=== PATIENT | female | born 1945 | race Caucasian/White ===

== ENCOUNTER 2021-03-27 20:08 | Inpatient (IN) ==
[2021-03-27] MEDS ORDERED: MECLIZINE 25 MG PO ONE (21:51)
--- NOTE | 2021-03-27 21:51 | Emergency Department Note ---
HPI General Chief complaint: Fall Stated complaint: Dizziness, fall Time Seen by Provider: 03/27/21 20:27 Source: patient, family and EMS Mode of arrival: wheelchair Limitations: no limitations History of Present Illness HPI Narrative: Narrative: Patient is a 76-year-old female who presented with chief complaint of dizziness and fall. Patient was brought in by her daughter after she had an episode where she became dizzy when she went from a sitting to a standing position. She states she felt the room was spinning, and she went to the ground, landing primarily on her right shoulder and hip. She denies hitting her head or loss of consciousness. Her primary complaint at this time is the right shoulder pain, and otherwise denies any other significant symptoms such as headache, neck pain or stiffness, numbness or tingling, chest pain, shortness of breath, nausea, vomiting, abdominal pain, changes in bowel movements or urinary symptoms. Patient states that she does get dizziness typically every so often when she changes positions too quickly, and it resolves with holding still. This has been normal for her and her daughter states she has had this for an extended amount of time. She has had a few falls in the past as well for similar symptoms. Related Data Previous Rx's Medication Instructions Recorded lisinopril 20 mg tablet 20 mg PO QDAY #90 tab 06/30/20 verapamil 180 mg tablet,extended See Rx Instructions .ROUTE 03/24/21 release .COMPLEX #90 tab meclizine 25 mg tablet 25 mg PO QDAY PRN #7 tab 03/27/21 Allergies Allergy/AdvReac Type Severity Reaction Status Date / Time No Known Drug Allergies Allergy Verified 03/27/21 20:14 Review of Systems ROS ROS Narrative: Narrative: All systems ED: reviewed and negative except as stated. 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 (Acute) Lumbar back pain with radiculopathy affecting right lower extremity (Acute) Leg pain, right (Acute) Annual physical exam (Acute) Lymphadenopathy (Acute) Dizziness (Acute) History of left knee replacement (Chronic) History of total hysterectomy (Chronic) History of appendectomy (Chronic) History of colonoscopy (Chronic 04/20/18) Idiopathic progressive polyneuropathy (Chronic) Postmenopausal (Chronic) Hypothyroidism (Chronic) Osteoporosis (Chronic) Disequilibrium (Chronic) Vitamin D deficiency (Chronic) Toothache (Chronic) Nausea (Chronic) Hypertension (Chronic) Raynaud's syndrome (Chronic) Foot pain (Chronic) Plantar fasciitis (Chronic) Back pain (Chronic) Contact dermatitis (Chronic) Other specified injuries of head, initial encounter (Chronic) Hemorrhoids (Chronic) Chest pain (Chronic) Medical History Back pain Contact dermatitis Disequilibrium Foot pain Hemorrhoids Hypertension Hypothyroidism Idiopathic progressive polyneuropathy Leg pain, right Lumbar back pain with radiculopathy affecting right lower extremity Nausea Osteoporosis Other specified injuries of head, initial encounter Plantar fasciitis Postmenopausal Raynaud's syndrome Toothache Vitamin D deficiency Surgical History History of appendectomy History of colonoscopy (04/20/18) Dr Ku repeat 10 years History of left knee replacement History of total hysterectomy Family History Mother HTN (hypertension) CVA (cerebral vascular accident) Thyroid disorder Father Cancer Sister HTN (hypertension) Social History Smoking Status: Never smoker Substance Use: does not use Exam Narrative Narrative: Narrative: Patient is laying in bed, talking normally and appropriately. She does not appear to be in acute discomfort or distress. General Limitations: no limitations Head Head: Present atraumatic and normocephalic Eye Eye: Present normal appearance, PERRL and EOMI; Absent scleral icterus or conjunctival injection ENT ENT: Present normal oropharynx and mucous membranes moist Neck Neck: Present full ROM and trachea midline; Absent tenderness or lymphadenopathy Chest Chest: Present symmetric chest wall rise Respiratory Respiratory: Present normal lung sounds bilaterally; Absent respiratory distress, rales/crackles, wheezes, stridor or accessory muscle use Cardiovascular Cardiovascular: Present regular rate and normal rhythm; Absent systolic murmur or diastolic murmur Adbominal Abdominal: Present soft; Absent tenderness, guarding, rebound, rigidity or mass Extremities Extremities: Absent pedal edema, pretibial edema or calf tenderness Expanded Upper Extremity Shoulder: Present full ROM and tenderness; Absent swelling, abrasion, ecchymosis, deformity, crepitus, dislocation or tenderness over AC joint Arm: Present normal inspection Elbow: Present normal inspection Expanded Lower Extremity Hip/Pelvis: Present normal inspection; Absent full ROM, tenderness, swelling, ecchymosis, deformity, crepitus, erythema, external rotation, internal rotation or shortening Back Back: Absent CVA tenderness (R), CVA tenderness (L) or spinous process tenderness Neurological Neurological: Present alert, oriented X3 and CN II-XII intact; Absent motor sensory deficit Psychiatric Psychiatric: Present normal affect and normal mood Skin Skin: Present warm (WNL) and dry Course Vital Signs Vital signs: Vital Signs Temperature 97.5 F 03/27/21 20:10 Pulse Rate 72 03/27/21 20:10 Respiratory Rate 16 03/27/21 20:10 Blood Pressure 163/72 03/27/21 20:10 Pulse Oximetry (%) 100 03/27/21 20:10 Temperature 97.5 F 03/27/21 20:10 Pulse Rate 72 03/27/21 21:38 Respiratory Rate 16 03/27/21 20:10 Blood Pressure 129/71 03/27/21 21:38 Pulse Oximetry (%) 98 03/27/21 21:38 MDM MDM Narrative Medical decision making narrative: Narrative: Patient is a 76-year-old female presented with chief complaint of right shoulder pain after a fall. Patient had no significant traumatic injuries noted on physical exam, and had normal vital signs here. EKG was unremarkable. Her dizziness episodes appear to be related to positional changes too quickly, either being vertiginous in nature or vasovagal. I have very low suspicion for ACS, PE, or other significant cardiopulmonary cause of her dizziness symptoms at this time. X-rays are negative for any significant acute findings on her shoulder or hip. Patient was given meclizine for her dizziness and plan to be discharged home with continued conservative management and close PCP follow-up. Patient is agreeable to the plan at this time has no further concerns or questions Procedures Other Procedure: EKG shows normal sinus rhythm with rate approximately 70. No ST elevation or depression concerning for ischemia. Right bundle branch block noted. No other significant arrhythmias as noted. Discharge Plan Patient/Caregiver Discharge Instructions Pt seen by WORKGROUP LEADER/PA only: No Clinical Impression: Fall, Right shoulder pain, Acute hip pain, Dizziness Instructions: Dizziness (ED), Shoulder Pain (ED), Hip Pain (ED) Patient Disposition: Home, Self-Care Follow up with: Gail Welch ARNP [Primary Care Provider] - Prescriptions: New meclizine 25 mg tablet 25 mg PO QDAY PRN (Reason: dizziness) Qty: 7 0RF No Action lisinopril 20 mg tablet 20 mg PO QDAY Qty: 90 2RF verapamil 180 mg tablet extended release See Rx Instructions .ROUTE .COMPLEX Qty: 90 3RF Dose Instruction: TAKE 1 TABLET BY MOUTH EVERY NIGHT AT BEDTIME Rx Instructions: TAKE 1 TABLET BY MOUTH EVERY NIGHT AT BEDTIME
[2021-03-27 23:21] LABS: POC Blood Urea Nitrogen 27 mg/dL (6-20); POC CO2 24 mmol/L (22-30); POC Calcium, Ionized 1.12 mmEq/L (1.16-1.32); POC Chloride 105 mEq/L (96-108); POC Glucose, Random 109 mg/dL (70-105); POC Hematocrit 36 % (36-48); POC Sodium 140 mEq/L (133-145)
[2021-03-28] MEDS ORDERED: ASPIRIN 81 MG TAB.CHEW CHEWED ONE (00:38)
[2021-03-28] MEDS ORDERED: PROCHLORPERAZINE 10 MG/2 ML VIAL IV PRN (01:44)
[2021-03-28] MEDS ORDERED: ONDANSETRON 4 MG/2 ML VIAL IV PRN (01:44)
[2021-03-28] MEDS: 0.9 % SODIUM CHLORIDE 1,000 ML IV SCH ×2 (01:46→17:12)
--- NOTE | 2021-03-28 02:50 | XRay Report ---
CLINICAL INFORMATION: Trauma COMPARISON: None. FINDINGS: Moderate degeneration seen in the acromioclavicular and glenohumeral joints. There is no fracture or other osseous abnormality. Soft tissues are unremarkable. IMPRESSION: No fracture. Degenerative change. Interpreted and Authenticated by: Glenn Wayne 03/28/21
--- NOTE | 2021-03-28 02:52 | XRay Report ---
CLINICAL INFORMATION: Trauma COMPARISON: 08/04/2020 FINDINGS: Sacroiliac and hip joints are normal in width and alignment. Mild chondrocalcinosis femoral head cartilage appreciated. On the lateral view, there is a spur projecting from the anterior right femoral neck There is no fracture or significant osseous abnormality. Soft tissues are unremarkable. IMPRESSION: No fracture. Degenerative change Interpreted and Authenticated by: Glenn Wayne 03/28/21
--- NOTE | 2021-03-28 03:08 | Cat Scan Report ---
CLINICAL INFORMATION: Dizziness COMPARISON: None. TECHNIQUE: 2.5 mm helical slices were obtained in the skull base to vertex. Following reconstruction, axial reformatted images were reviewed at bone and parenchymal windows. The exam was performed using radiation dose optimization techniques including, but not limited to, automated exposure control, adjustment of the mA and/or kV according to patient size and use of iterative reconstruction technique. FINDINGS: The ventricles, sulci, fissures, and cisterns are symmetrically enlarged compatible with mild age-related atrophy. No extra-axial fluid collections are identified. Mild patchy chronic ischemic changes, in the deep cerebral white matter, are expected for age. A 2 cm remote infarct in the right frontal lobe appreciated. 1 cm remote infarct in the left frontal lobe near vertex There is no hemorrhage, mass effect, or edema. Bone windows show no osseous abnormality. IMPRESSION: Mild atrophy and chronic ischemic changes in the deep cerebral white matter-expected for age. 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 No cerebral hemorrhage or other acute finding Interpreted and Authenticated by: Glenn Wayne 03/28/21
[2021-03-28] MEDS: 0.9 % SODIUM CHLORIDE 10 ML SYRINGE IV SCH ×3 (05:06→20:22)
[2021-03-28] MEDS ORDERED: LORazepam 2 MG/ML VIAL IV ONE (07:56)
[2021-03-28] MEDS: FAMOTIDINE 20 MG TABLET PO SCH ×2 (08:16→20:31)
[2021-03-28] MEDS: ENOXAPARIN 40 MG/0.4 ML SYRINGE SQ SCH (08:16)
[2021-03-28] MEDS: DOCUSATE SODIUM 100 MG CAPSULE PO SCH ×2 (08:17→20:31)
[2021-03-28] MEDS: ASPIRIN 81 MG TAB.CHEW PO SCH (08:17)
[2021-03-28] MEDS: ACETAMINOPHEN 325 MG TABLET PO PRN ×2 (08:18→20:37)
--- NOTE | 2021-03-28 11:12 | Internal Med History&Physical ---
HPI History of Present Illness Patient information: Note initiated : 03/28/21 at 11:11 am Service Date, if different from initiated Date: [] Patient: Stehpanie Olivares a 76 y/o F admitted on 03/28/21 for Dizziness, fall. Chief Complaint: [] History of present illness: Ms. Olivares is a 76 year old F with a past history of hypertension, spinal stenosis with peripheral neuropathy who presents to the ED after a fall at home. History is obtained in speaking with the patient as well as her daughter. Patient was in her usual state of health yesterday. At baseline she does ambulate with a cane as she is recovered from back surgery this past September. She gone to the gym as usual, and her daughter had spoken with her in the evening. Shortly thereafter the patient was returning to the kitchen sink when she became dizzy and fell onto her right side. The dizziness sensation was apparently a feeling of falling to the right, not presyncopal, not vertigo. The patient stood up, again became dizzy, wanting to follow the right and let herself back to the floor. She is greater across the floor to a chair. She is afraid to stand due to fear of falling again. She called her daughter, eventually the fire department arrived to evaluate. She is transported to the hospital and her daughters vehicle, requiring assistance in using her walker and getting to the pickup. Evaluation in the ED with head CT showed old frontal cortical infarcts, nothing acute. Plain films of the shoulder and hip were negative. The patient continued to have complaints of dizziness and falling to the right. NIH stroke scale was reported to me as 0 in the ED. However the patient and her daughter both note the patient felt weak on her right side from the onset of her symptoms which has continued to the time of my exam is generally unchanged. Upon arrival on the floor NIH stroke scale was 6. The patient was outside of the window for TPA administration. Patient arrived on the floor in the early hours of 03/28, when seen later that morning she was still feeling somewhat "dizzy" in which she still felt like she wanted to fall to the right, this was worse when she attempted to sit up or stand. Both her and her daughter note that she appears to be weaker on the right since her fall last evening, as noted above. She is also complaining of continued significant pain in the right shoulder. She does have a history of disequilibrium in the past, though her current symptoms are distinctly different and worsened and abruptly began yesterday. Patient has a history of high blood pressure, has been on antihypertensives for about 3 years. Normal systolics are in the 120s. Prior to treatment they were in the 170s. She has no history of hypercholesterolemia, no history of diabetes. Her mother did suffer more than 1 stroke, eventually succumbing to cerebrovascular disease. She has never smoked tobacco products. Other than chronic neuropathic changes in her legs, some chronic but improving bilateral lower extremity weakness dating from prior to her spinal surgery this summer, she is without other complaints. Specifically no fevers, chills, vision changes, difficulty speaking or word finding. No dyspnea, no chest pain or tightness, no abdominal pain, no changes in perineal sensation, no history of kidney problems, no dysuria. Musculoskeletal complaints as above. Neurologic complaints as above. No rashes, no bruising or bleeding. Review of Systems All systems: reviewed and no additional remarkable complaints except as stated PFSH PFSH All Active Problems (Updated 03/28/21 @ 11:34 by Nisa Brantley MD) Abdominal bruit (Acute) Cerebrovascular accident (Acute) Fall (Acute) Right shoulder pain (Acute) Acute hip pain (Acute) Dizziness (Acute) Rib pain on left side (Acute) Varicose veins of leg with pain (Acute) Varicose veins of left leg with edema (Acute) Lumbar back pain with radiculopathy affecting right lower extremity (Acute) Leg pain, right (Acute) Annual physical exam (Acute) Lymphadenopathy (Acute) Dizziness (Acute) History of left knee replacement (Chronic) History of total hysterectomy (Chronic) History of appendectomy (Chronic) History of colonoscopy (Chronic 04/20/18) Idiopathic progressive polyneuropathy (Chronic) Postmenopausal (Chronic) Hypothyroidism (Chronic) Osteoporosis (Chronic) Disequilibrium (Chronic) Vitamin D deficiency (Chronic) Toothache (Chronic) Nausea (Chronic) Hypertension (Chronic) Raynaud's syndrome (Chronic) Foot pain (Chronic) Plantar fasciitis (Chronic) Back pain (Chronic) Contact dermatitis (Chronic) Other specified injuries of head, initial encounter (Chronic) Hemorrhoids (Chronic) Chest pain (Chronic) Medical History (Updated 03/28/21 @ 11:34 by Nisa Brantley MD) Back pain Contact dermatitis Disequilibrium Foot pain Hemorrhoids Hypertension Hypothyroidism Idiopathic progressive polyneuropathy Leg pain, right Lumbar back pain with radiculopathy affecting right lower extremity Nausea Osteoporosis Other specified injuries of head, initial encounter Plantar fasciitis Postmenopausal Raynaud's syndrome Toothache Vitamin D deficiency Surgical History History of appendectomy History of colonoscopy (04/20/18) Dr Ku repeat 10 years History of left knee replacement History of lumbosacral spine surgery L4-L5, L5-S1 decompression History of total hysterectomy Family History Mother HTN (hypertension) CVA (cerebral vascular accident) Thyroid disorder Father Cancer Sister HTN (hypertension) Social History (Updated 03/28/21 @ 11:26 by Nisa Brantley MD) household members: alone marital status: other: Has 3 children smoking status: Never smoker substance use type: does not use MEDS/ALLERGIES Home Medications and Allergies Home Medications Medication Instructions Recorded Confirmed Type lisinopril 20 mg tablet 20 mg PO QDAY #90 tab 06/30/20 03/28/21 Rx meclizine 25 mg tablet 25 mg PO QDAY PRN #7 tab 03/27/21 Rx verapamil 180 mg tablet,extended 180 mg PO QHS 03/28/21 03/28/21 History release Allergies Allergy/AdvReac Type Severity Reaction Status Date / Time No Known Drug Allergies Allergy Verified 03/27/21 20:14 EXAM Constitutional Vitals: Temp Pulse Resp BP Pulse Ox 97.9 F 65 18 139/79 96 03/28/21 07:01 03/28/21 07:01 03/28/21 07:01 03/28/21 07:01 03/28/21 07:01 GENERAL: Alert, oriented, in no acute distress. Cooperative, appears stated age. HEENT: Atraumatic. PERRL at 3 mm, EOMI without nystagmus, conjunctiva clear, no scleral icterus. Hearing grossly intact. Oropharynx with lower dentures missing, moist mucous membranes, no lip or gum lesions, no pharyngeal erythema or exudate. Tongue midline, palate rises symmetrically. NECK: Supple without meningismus, no thyromegaly RESPIRATORY: Breath sounds clear bilaterally without wheezes or rhonchi. Respiratory effort is unlabored. CARDIOVASCULAR: Regular rate and rhythm, 1/6 systolic murmur at upper right sternal border without radiation, no gallop or rub. No peripheral edema. Carotid pulses 2+ without bruit. Pedal pulses 2+ at the dorsalis pedis bilaterally. GI: Abdomen soft, nontender, no guarding or rebound. Bowel sounds are present. No hepatosplenomegaly. Pulsatile aorta palpable with no bruit noted. MUSCULOSKELETAL: Tenderness to palpation over the right anterior humeral joint. Pain with passive flexion, extension and abduction at the shoulder. Mild tenderness over the posterior right trochanter. Otherwise, normal range of motion in all extremities. SKIN: Intact, warm, dry. No lesions. Skin turgor normal. NEUROLOGIC: Cranial nerves II through XII intact (visual workman not tested) Muscle mass normal for age. In the right upper extremity, right metalworking instructor, biceps, triceps is 4/5. In the left upper extremity, strength 5/5. Right lower extrem ity with 4/5 strength at the hip flexor, knee flexor and extensor, 3/5 at ankle flexion and extension. Sensation intact to light touch bilaterally. Deep tendon reflexes 2+ at the biceps and patella. PSYCHIATRIC: Alert, oriented x3, normal mood and affect, normal insight. DATA Data Completed and Pending Labs: Labs from last 24 hours 03/27/21 23:11 POC Hct 36 POC Sodium 140 POC Potassium 4.0 POC Chloride 105 POC Total CO2 24 POC BUN 27 H POC Creatinine 1.0 POC Glucose 109 H POC WB Ioniz Calcium 1.12 L [address] CT scan - head: Status: image reviewed by me Additional comments: Bilateral cortical-based old frontal lobe infarcts, no acute. R shoulder x-ray: Status: image reviewed by me Additional comments: Degenerative changes, no acute fracture R hip x-ray: Status: image reviewed by me Additional comments: Degenerative change without fracture EKG: Status: image reviewed by me Additional comments: Sinus rhythm at 69 with right bundle branch block, no acute changes A/P Assessment and plan (1) Cerebrovascular accident: Status: Acute (2) Right shoulder pain: Status: Acute (3) Abdominal bruit: Status: Acute (4) Hypertension: Status: Chronic Qualifiers: Hypertension type: essential hypertension Qualified Code(s): I10 - Essential (primary) hypertension Narrative A/P Narrative: 76-year-old female presents after fall at home with right-sided weakness, right shoulder and right hip pain. Cerebrovascular accident -Objective right weakness in the right upper and lower extremity (even when accounting for pain in right shoulder limiting exam) -Findings of old cortical right and left frontal infarcts on CT of head -Does not tolerate MRI without conscious sedation -No prior known history of vascular disease -Risk factors are hypertension -Given right upper and lower motor findings, possible lacunar infarct -Outside of TPA window at time of presentation Hypertension -Controlled with lisinopril and verapamil -On treatment for about 3 years Right shoulder pain -Fell onto her right shoulder -Plain films negative -Significant pain with passive range of motion at shoulder joint -Tenderness over anterior humeral head Abdominal bruit -Noted on exam -On exam aorta does not appear dilated to palpation -Patient unaware of any prior abdominal findings CODE STATUS: Full code Prophylaxis: Enoxaparin Plan: * Inpatient status, clinical stroke diagnosis * As does not tolerate MRI, will recheck CT tomorrow to evaluate for interval evolution of any stroke findings * Will check CTA for further stroke work-up with CT tomorrow * Echocardiogram * Continue monitor technician * Continue aspirin and atorvastatin (high intensity) * Allow permissive hypertension * PT and OT evaluations * Check CT of right shoulder to rule out occult fracture given significant pain * Check abdominal aortic ultrasound with bruit and palpable aorta
--- NOTE | 2021-03-28 18:51 | Ultrasound Report ---
CLINICAL INFORMATION: Abdominal pain and palpable aorta COMPARISON: None. FINDINGS: -Aortic dimensions: -Proximal: 2.1 -Suprarenal: 1.9 -Infrarenal: 1.6 -Distal: 1.7 -Right common iliac artery: 1.1 -Left common iliac artery: 1.0 IMPRESSION: , Aorta is normal in diameter. No evidence of AAA Interpreted and Authenticated by: Glenn Wayne 03/28/21
--- NOTE | 2021-03-28 19:56 | Cat Scan Report ---
CLINICAL INFORMATION: Trauma COMPARISON: None. TECHNIQUE: 0.625 mm slices were obtained through the right shoulder. Sagittal, axial and coronal reformatted images were processed and reviewed at bone and soft tissue windows.The exam was performed using radiation dose optimization techniques including, but not limited to, automated exposure control, adjustment of the mA and/or kV according to patient size and use of iterative reconstruction technique. FINDINGS: A remote avulsion fracture from the posterior superior quadrant of the osseous glenoid labrum is appreciated. This results in a 14 x 5 mm fragment from the glenoid 2 to 3 mm. no acute fractures identified. There are 2-3 tiny loose bodies in the anterior glenohumeral joint-no evidence of joint effusion. There is mild degenerative change in the glenohumeral and acromioclavicular joint. A large enthesophyte, projecting from the inferior acromion, may predispose to rotator cuff impingement. The soft tissues are normal. IMPRESSION: No acute fracture. Remote avulsion fracture from the posterior superior osseous glenoid labrum with a 14 x 5 large fragment. This would predispose to posterior instability. This would typically occurred during transient posterior glenohumeral dislocation. . Approximately Three tiny loose bodies in the anterior glenohumeral joint. Mild acromioclavicular degeneration with prominent enthesophyte projecting from the inferior acromion predisposing to extrinsic rotator cuff impingement. The humeral head is superiorly subluxed-a rotator cuff impingement and tear is suspected Mild glenohumeral degeneration Interpreted and Authenticated by: Glenn Wayne 03/28/21
[2021-03-28] MEDS: SENNOSIDES 1 TABLET PO SCH (20:31)
[2021-03-28] MEDS: ATORVASTATIN 40 MG TABLET PO SCH (20:32)
[2021-03-29] MEDS: 0.9 % SODIUM CHLORIDE 10 ML SYRINGE IV SCH ×3 (05:26→20:11)
[2021-03-29] MEDS: 0.9 % SODIUM CHLORIDE 1,000 ML IV SCH ×2 (05:26→06:18)
[2021-03-29 07:06] LABS: Blood Urea Nitrogen 26 mg/dL (8-23); Calcium 8.2 mg/dL (8.6-10.4); Carbon Dioxide 21 mmol/L (22-30); Chloride 108 mmol/L (96-108); Glomerular Filtration Rate 55; Glucose 87 mg/dL (70-105); HDL Cholesterol 46 mg/dL (>40); LDL Cholesterol,Calculated 62 mg/dL (<100); Non-HDL Cholesterol 78 mg/dL (<130); Triglycerides 81 mg/dL (<150)
[2021-03-29] MEDS: ASPIRIN 81 MG TAB.CHEW PO SCH (08:24)
[2021-03-29] MEDS: ENOXAPARIN 40 MG/0.4 ML SYRINGE SQ SCH (08:24)
[2021-03-29] MEDS: ACETAMINOPHEN 325 MG TABLET PO PRN ×2 (08:24→19:54)
[2021-03-29] MEDS: FAMOTIDINE 20 MG TABLET PO SCH ×2 (08:24→19:54)
[2021-03-29] MEDS: DOCUSATE SODIUM 100 MG CAPSULE PO SCH ×2 (08:24→19:54)
--- NOTE | 2021-03-29 08:44 | Internal Med Progress Note ---
SUBJECTIVE Subjective Patient information: Note initiated : 03/29/21 at 8:43 am Service Date, if different from initiated Date: [] Patient: Stephanie Olivares a 76 y/o F admitted on 03/28/21 for Dizziness, fall. Chief Complaint: Follow-up CVA Interval history: 03/28: Ms. Olivares is a 76 year old F with a past history of hypertension, spinal stenosis with peripheral neuropathy who presents to the ED after a fall at home. History is obtained in speaking with the patient as well as her daughter. Patient was in her usual state of health yesterday. At baseline she does ambulate with a cane as she is recovered from back surgery this past September. She gone to the gym as usual, and her daughter had spoken with her in the evening. Shortly thereafter the patient was returning to the kitchen sink when she became dizzy and fell onto her right side. The dizziness sensation was apparently a feeling of falling to the right, not presyncopal, not vertigo. The patient stood up, again became dizzy, wanting to follow the right and let herself back to the floor. She is greater across the floor to a chair. She is afraid to stand due to fear of falling again. She called her daughter, eventually the fire department arrived to evaluate. She is transported to the hospital and her daughters vehicle, requiring assistance in using her walker and getting to the pickup. Evaluation in the ED with head CT showed old frontal cortical infarcts, nothing acute. Plain films of the shoulder and hip were negative. The patient continued to have complaints of dizziness and falling to the right. NIH stroke scale was reported to me as 0 in the ED. However the patient and her daughter both note the patient felt weak on her right side from the onset of her symptoms which has continued to the time of my exam is generally unchanged. Upon arrival on the floor NIH stroke scale was 6. The patient was outside of the window for TPA administration. Patient arrived on the floor in the early hours of 03/28, when seen later that morning she was still feeling somewhat "dizzy" in which she still felt like she wanted to fall to the right, this was worse when she attempted to sit up or stand. Both her and her daughter note that she appears to be weaker on the right since her fall last evening, as noted above. She is also complaining of continued significant pain in the right shoulder. She does have a history of disequilibrium in the past, though her current symptoms are distinctly different and worsened and abruptly began yesterday. 03/29: Strength seems improved in the right upper and lower extremities today. Still with shoulder pain, though it does not seem to be as bad with passive range of motion. CT of the shoulder showed subluxation of the glenohumeral joint and remote posterior labrum avulsion fracture. May have rotator cuff impingement or tear. Abdominal ultrasound with no evidence of aneurysm. No speech or swallowing problems. Case reviewed at bedside with her daughter Annette ([phone]) via telephone. Constitutional Vitals: Vital Signs Temp Pulse Resp BP Pulse Ox 98.5 F 55 L 20 136/71 96 03/29/21 06:59 03/29/21 03:32 03/29/21 06:59 03/29/21 06:59 03/29/21 06:59 Period Temp Pulse Resp BP Sys/Diamond Pulse Ox Last 24 Hr 97.6 F-98.7 F 55-76 16-20 105-137/50-74 95-96 Intake and Output 03/28/21 03/29/21 03/29/21 21:59 05:59 13:59 Intake Total 1989 1223 Output Total 300 1000 300 Balance 1690 -1000 923 Weight 141 lb 9.6 oz Intake & Output: Intake & Output 03/28/21 03/29/21 03/29/21 21:59 05:59 13:59 Intake Total 1989 1223 Output Total 300 1000 300 Balance 1690 -1000 923 Weight 141 lb 9.6 oz Intake: IV 1000 983 Sodium Chloride 0.9% 1,000 ml @ 1000 983 75 mls/hr IV .[id number] [facility] Rx#: [id number] Oral 990 240 Output: Void Amount 300 1000 300 Other: Meal Dinner Breakfast Percent of Meal Consumed 100% 100% Urine Appearance Clear Clear Urine Color Pale Bright Yellow Urine Odor Normal # Voids 1 GENERAL: In bed eating breakfast in no acute distress RESPIRATORY: Clear bilaterally CARDIOVASCULAR: Regular rate and rhythm ABDOMEN: Soft, nontender EXTREMITIES: No edema MUSCULOSKELETAL: Tenderness over the anterior shoulder, pain with passive extension (improved from yesterday), minimal pain with internal and external rotation, cannot abduct secondary to pain. NEURO: Alert, oriented to person, place and situation. Hard of hearing (1 hearing aid not functioning). Cranial nerves intact. Strength is 5/5 at the right r developer and biceps and triceps. Strength is 5/5 at the right hip flexor, knee flexor/extensor, ankle flexor/extensor. OBJ DATA Labs CBC & Chem 7: 03/29/21 05:16 Labs: Abnormal Lab Results 03/29/21 03/27/21 05:16 23:11 Carbon Dioxide 21 L POC BUN 27 H BUN 26 H POC Glucose 109 H Calcium 8.2 L POC WB Ioniz Calcium 1.12 L Meds: Medications Acetaminophen (Acetaminophen 325 Mg Tablet) 650 mg PO Q6HP PRN; Protocol PRN Reason: Per Pain Protocol/Fever > 101 Last Admin: 03/29/21 08:24 Dose: 650 mg Documented by: Aspirin (Aspirin 81 Mg Tab.Chew) 81 mg PO DAILY [facility] Last Admin: 03/29/21 08:24 Dose: 81 mg Documented by: Atorvastatin Calcium (Atorvastatin 40 Mg Tablet) 80 mg PO [facility] Last Admin: 03/28/21 20:32 Dose: 80 mg Documented by: Docusate Sodium (Docusate Sodium 100 Mg Capsule) 100 mg PO BID [facility] Last Admin: 03/29/21 08:24 Dose: 100 mg Documented by: Enoxaparin Sodium (Enoxaparin 40 Mg/0.4 Ml Syringe) 40 mg SQ DAILY [facility] Last Admin: 03/29/21 08:24 Dose: 40 mg Documented by: Famotidine (Famotidine 20 Mg Tablet) 20 mg PO BID [facility] Last Admin: 03/29/21 08:24 Dose: 20 mg Documented by: Sodium Chloride (Sodium Chloride 0.9%) 1,000 mls @ 75 mls/hr IV .[id number] [facility] Last Admin: 03/29/21 06:18 Dose: 75 mls/hr Documented by: Ondansetron HCl (Ondansetron 4 Mg/2 Ml Vial) 4 mg IV Q6HP PRN PRN Reason: Nausea And Vomiting Prochlorperazine (Prochlorperazine 10 Mg/2 Ml Vial) 5 mg IV Q4HP PRN PRN Reason: Nausea And Vomiting Senna (Sennosides 1 Tablet) 2 tab PO HS [facility] Last Admin: 03/28/21 20:31 Dose: 2 tab Documented by: Sodium Chloride (0.9 % Sodium Chloride 10 Ml Syringe) 10 ml IV Q8 [facility] Last Admin: 03/29/21 05:26 Dose: Not Given Documented by: Imaging and cardiology Aortic ultrasound: Additional comments: Normal caliber, no aneurysm CT R shoulder: Status: image reviewed by me Additional comments: IMPRESSION: No acute fracture. Remote avulsion fracture from the posterior superior osseous glenoid labrum with a 14 x 5 large fragment. This would predispose to posterior instability. This would typically occurred during transient posterior glenohumeral dislocation. . Approximately Three tiny loose bodies in the anterior glenohumeral joint. Mild acromioclavicular degeneration with prominent enthesophyte projecting from the inferior acromion predisposing to extrinsic rotator cuff impingement. The humeral head is superiorly subluxed-a rotator cuff impingement and tear is suspected Mild glenohumeral degeneration EKG Data EKG comments: Telemetry: Sinus rhythm A/P Assessment and plan (1) Cerebrovascular accident: Status: Acute (2) Right shoulder pain: Status: Acute (3) Abdominal bruit: Status: Acute (4) Hypertension: Status: Chronic Qualifiers: Hypertension type: essential hypertension Qualified Code(s): I10 - Essential (primary) hypertension Narrative A/P Narrative: 76-year-old female presents after fall at home with right-sided weakness, right shoulder and right hip pain. Cerebrovascular accident -Objective right weakness in the right upper and lower extremity (even when accounting for pain in right shoulder limiting exam) -Improved exam on 03/29 -Findings of old cortical right and left frontal infarcts on CT of head -Does not tolerate MRI without conscious sedation -No prior known history of vascular disease -Risk factors are hypertension -Given right upper and lower motor findings, possible lacunar infarct -Outside of TPA window at time of presentation -Follow-up CT head and CTA head and neck 03/29 to evaluate for evolution of infarct -Echocardiogram completed, report pending a.m. 03/29 Hypertension -Controlled with lisinopril and verapamil -On treatment for about 3 years Right shoulder pain -Fell onto her right shoulder -Plain films negative -Significant pain with passive range of motion at shoulder joint -Tenderness over anterior humeral head -CT of shoulder with subluxation of humeral head, possible rotator cuff tear versus impingement Abdominal bruit -Noted on exam -On exam aorta does not appear dilated to palpation -Patient unaware of any prior abdominal findings -Ultrasound without evidence of aneurysm Plan: * Recheck CT head today to evaluate for interval evolution of any stroke findings * CTA of head and neck today for further stroke work-up * F/U echocardiogram report * Continue compliance monitor * Continue aspirin and atorvastatin (high intensity) * Resume lower dose verapamil this evening (dose reduced due to possible increased BP effect while on atorvastatin) * Resume lisinopril tomorrow morning * Continue PT and OT evaluations * Orthopedic consult regards right shoulder * Discharge planning CODE STATUS: Full code Prophylaxis: Enoxaparin Disposition: Likely another day in the hospital, continue with therapies and discharge planning
--- NOTE | 2021-03-29 12:56 | Internal Med Progress Note ---
SUBJECTIVE Subjective Patient information: Note initiated : 03/29/21 at 12:51 pm Service Date, if different from initiated Date: [] Patient: Stephanie Olivares a 76 y/o F admitted on 03/28/21 for Dizziness, fall. Chief Complaint: [] Interval history: 03/28: Ms. Olivares is a 76 year old F with a past history of hypertension, spinal stenosis with peripheral neuropathy who presents to the ED after a fall at home. History is obtained in speaking with the patient as well as her daughter. Patient was in her usual state of health yesterday. At baseline she does ambulate with a cane as she is recovered from back surgery this past September. She gone to the gym as usual, and her daughter had spoken with her in the evening. Shortly thereafter the patient was returning to the kitchen sink when she became dizzy and fell onto her right side. The dizziness sensation was apparently a feeling of falling to the right, not presyncopal, not vertigo. The patient stood up, again became dizzy, wanting to follow the right and let herself back to the floor. She is greater across the floor to a chair. She is afraid to stand due to fear of falling again. She called her daughter, eventually the fire department arrived to evaluate. She is transported to the hospital and her daughters vehicle, requiring assistance in using her walker and getting to the pickup. Evaluation in the ED with head CT showed old frontal cortical infarcts, nothing acute. Plain films of the shoulder and hip were negative. The patient continued to have complaints of dizziness and falling to the right. NIH stroke scale was reported to me as 0 in the ED. However the patient and her daughter both note the patient felt weak on her right side from the onset of her symptoms which has continued to the time of my exam is generally unchanged. Upon arrival on the floor NIH stroke scale was 6. The patient was outside of the window for TPA administration. Patient arrived on the floor in the early hours of 03/28, when seen later that morning she was still feeling somewhat "dizzy" in which she still felt like she wanted to fall to the right, this was worse when she attempted to sit up or stand. Both her and her daughter note that she appears to be weaker on the right since her fall last evening, as noted above. She is also complaining of continued significant pain in the right shoulder. She does have a history of disequilibrium in the past, though her current symptoms are distinctly different and worsened and abruptly began yesterday. 03/29: Strength seems improved in the right upper and lower extremities today. Still with shoulder pain, though it does not seem to be as bad with passive range of motion. CT of the shoulder showed subluxation of the glenohumeral joint and remote posterior labrum avulsion fracture. May have rotator cuff impingement or tear. Abdominal ultrasound with no evidence of aneurysm. No speech or swallowing problems. Case reviewed at bedside with her daughter Annette ([phone]) via telephone. Constitutional Vitals: Vital Signs Temp Pulse Resp BP Pulse Ox 98.4 F 55 L 16 136/76 99 03/29/21 12:00 03/29/21 03:32 03/29/21 12:00 03/29/21 12:00 03/29/21 12:00 Period Temp Pulse Resp BP Sys/Diamond Pulse Ox Last 24 Hr 97.6 F-98.7 F 55-73 16-20 105-137/50-76 95-99 Intake and Output 03/28/21 03/29/21 03/29/21 21:59 05:59 13:59 Intake Total 1989 1343 Output Total 300 1000 300 Balance 1690 -1000 1043 Weight 64.229 kg Intake & Output: Intake & Output 03/28/21 03/29/21 03/29/21 21:59 05:59 13:59 Intake Total 1989 1343 Output Total 300 1000 300 Balance 1690 -1000 1043 Weight 64.229 kg Intake: IV 1000 983 Sodium Chloride 0.9% 1,000 ml @ 1000 983 75 mls/hr IV .[id number] [facility] Rx#: [id number] Oral 990 360 Output: Void Amount 300 1000 300 Other: Meal Dinner Lunch Percent of Meal Consumed 100% 100% Urine Appearance Clear Clear Urine Color Pale Bright Yellow Urine Odor Normal Stool Size Moderate Stool Consistency Soft Formed # Voids 1 1 # Bowel Movements 1 Exam: General: Alert, Awake, No acute Distress Eyes/N/T: EOMI, Head/Neck: neck supple, CV: RRR, No murmurs, Pulm: Clear b/l, no wheezing/rhonchi/rales Abd: soft, nontender, +BS x4 Ext: no clubbing/cyanosis/edema Neuro: Alert, right hemiparisis, sensations intact b/l upper/lower Skin: warm/dry OBJ DATA Labs CBC & Chem 7: 03/29/21 05:16 Labs: Abnormal Lab Results 03/29/21 03/27/21 05:16 23:11 Carbon Dioxide 21 L POC BUN 27 H BUN 26 H POC Glucose 109 H Calcium 8.2 L POC WB Ioniz Calcium 1.12 L Meds: Medications Acetaminophen (Acetaminophen 325 Mg Tablet) 650 mg PO Q6HP PRN; Protocol PRN Reason: Per Pain Protocol/Fever > 101 Last Admin: 03/29/21 08:24 Dose: 650 mg Documented by: Aspirin (Aspirin 81 Mg Tab.Chew) 81 mg PO DAILY [facility] Last Admin: 03/29/21 08:24 Dose: 81 mg Documented by: Atorvastatin Calcium (Atorvastatin 40 Mg Tablet) 80 mg PO [facility] Last Admin: 03/28/21 20:32 Dose: 80 mg Documented by: Docusate Sodium (Docusate Sodium 100 Mg Capsule) 100 mg PO BID [facility] Last Admin: 03/29/21 08:24 Dose: 100 mg Documented by: Enoxaparin Sodium (Enoxaparin 40 Mg/0.4 Ml Syringe) 40 mg SQ DAILY [facility] Last Admin: 03/29/21 08:24 Dose: 40 mg Documented by: Famotidine (Famotidine 20 Mg Tablet) 20 mg PO BID [facility] Last Admin: 03/29/21 08:24 Dose: 20 mg Documented by: Lisinopril (Lisinopril 20 Mg Tablet) 20 mg PO QDAY [facility] Ondansetron HCl (Ondansetron 4 Mg/2 Ml Vial) 4 mg IV Q6HP PRN PRN Reason: Nausea And Vomiting Prochlorperazine (Prochlorperazine 10 Mg/2 Ml Vial) 5 mg IV Q4HP PRN PRN Reason: Nausea And Vomiting Senna (Sennosides 1 Tablet) 2 tab PO HS [facility] Last Admin: 03/28/21 20:31 Dose: 2 tab Documented by: Sodium Chloride (0.9 % Sodium Chloride 10 Ml Syringe) 10 ml IV Q8 [facility] Last Admin: 03/29/21 05:26 Dose: Not Given Documented by: Verapamil HCl (Verapamil 120 Mg Tab.Xl.24h) 120 mg PO QHS [facility] A/P Narrative A/P Narrative: A: *CVA w/right hemiparesis(improving): -Findings of old cortical right and left frontal infarcts on CT of head -Does not tolerate MRI without conscious sedation *HTN: Controlled with lisinopril and verapamil *Right shoulder pain s/p fall: -Plain films negative -CT shoulder w/subluxation of humeral head, possible rotator cuff tear versus impingement *Abdominal bruit: -Noted on exam, On exam aorta does not appear dilated to palpation, Ultrasound without evidence of aneurysm Plan: -Follow-up CT head and CTA head and neck 1/2 to evaluate for evolution of infarct -Echocardiogram completed, report pending -Continue aspirin and atorvastatin (high intensity) -Resume lower dose verapamil this evening (dose reduced due to possible increased BP effect while on atorvastatin) -Resume lisinopril tomorrow morning -Continue PT and OT evaluations -Orthopedic consult regards right shoulder -ppx: Enoxaparin Time Spent With Patient Time: Total time spent is greater than 50% in coordination of care (as documented) at patient's floor/unit and/or counseling patient:
[2021-03-29] MEDS ORDERED: IOPAMIDOL 100 ML BOTTLE IV ONE (15:19)
--- NOTE | 2021-03-29 18:09 | Cat Scan Report ---
CLINICAL INFORMATION: Dizziness-fall. Possible CVA COMPARISON: Head CT 03/27/2021 TECHNIQUE: 2.5 mm helical slices were obtained in the skull base to vertex. Following reconstruction, axial reformatted images were reviewed at bone and parenchymal windows. The exam was performed using radiation dose optimization techniques including, but not limited to, automated exposure control, adjustment of the mA and/or kV according to patient size and use of iterative reconstruction technique. FINDINGS: The ventricles, sulci, fissures, and cisterns are symmetrically enlarged compatible with mild age-related atrophy. No extra-axial fluid collections are identified. Mild patchy chronic ischemic changes, in the deep cerebral white matter, are expected for age. A 2 cm remote infarct in the right frontal lobe appreciated. 1 cm remote infarct in the left frontal lobe near vertex There is no hemorrhage, mass effect, or edema. Bone windows show no osseous abnormality. IMPRESSION: Mild atrophy and chronic ischemic changes in the deep cerebral white matter-expected for age. 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 No cerebral hemorrhage or other acute finding. No change from exam two days prior Interpreted and Authenticated by: Glenn Wayne 03/29/21
--- NOTE | 2021-03-29 18:13 | Cat Scan Report ---
CLINICAL INFORMATION: CVA. Dizziness COMPARISON: None. TECHNIQUE: 80 cc of Isovue-370 were injected intravenously , and using SmartPrep to maximize cerebral arterial opacification, 0.625 mm helical slices were obtained from the skull base through the cerebral vertex. Following reconstruction , sagittal, coronal and axial reformatted images were processed and reviewed at multiple windows and levels. 3D volume rendered and MIP images were acquired at a independent workstation. The exam was performed using radiation dose optimization techniques including, but not limited to, automated exposure control, adjustment of the mA and/or kV according to patient size and use of iterative reconstruction technique. FINDINGS: The intracranial internal carotid, vertebral, basilar, anterior, middle and posterior cerebral arteries and their branches are well-opacified and normal in contour and caliber without significant stenosis, occlusion or other pathology. Superficial/deep cerebral veins and deep venous sinuses are widely patent IMPRESSION: Normal exam Interpreted and Authenticated by: Glenn Wayne 03/29/21
--- NOTE | 2021-03-29 18:27 | Cat Scan Report ---
CLINICAL INFORMATION: CVA. Dizziness COMPARISON: None. TECHNIQUE: 80 cc of Isovue-300 were injected intravenously followed by 40 cc of normal saline flush. Using SmartPrep, 0.625 helical slices were obtained from the thoracic aortic arch through the cabazon of [place]. Following reconstruction, 2.5 mm sagittal, coronal and axial reformatted images were processed. MIPS , 3-D volume rendering and CPR images were also constructed. The exam was performed using radiation dose optimization techniques including, but not limited to, automated exposure control, adjustment of the mA and/or kV according to patient size and use of iterative reconstruction technique. FINDINGS: The thoracic aortic arch is normal diameter with minimal intimal thickening and conventional aortic branching. The brachiocephalic, both subclavian, both common, right internal and external carotid and both vertebral arteries are widely patent without significant abnormality. There is moderate fibrofatty calcific plaque in the proximal left internal carotid artery which results in mild (less than 30% stenoses). No soft tissue abnormality. IMPRESSION: Mild (less than 30% stenosis) of the proximal left internal carotid artery. Consider follow-up carotid Doppler one year Interpreted and Authenticated by: Glenn Wayne 03/29/21
[2021-03-29] MEDS: VERAPAMIL 120 MG TAB.XL.24H PO SCH (19:54)
[2021-03-29] MEDS: ATORVASTATIN 40 MG TABLET PO SCH (19:54)
[2021-03-29] MEDS: SENNOSIDES 1 TABLET PO SCH (19:54)
[2021-03-30] MEDS: 0.9 % SODIUM CHLORIDE 10 ML SYRINGE IV SCH ×3 (04:19→22:00)
--- NOTE | 2021-03-30 07:21 | Internal Med Progress Note ---
SUBJECTIVE Subjective Patient information: Note initiated : 03/30/21 at 7:16 am Service Date, if different from initiated Date: [] Patient: Stephanie Olivares a 76 y/o F admitted on 03/28/21 for Dizziness, fall. Chief Complaint: [] Interval history: 03/28: Ms. Olivares is a 76 year old F with a past history of hypertension, spinal stenosis with peripheral neuropathy who presents to the ED after a fall at home. History is obtained in speaking with the patient as well as her daughter. Patient was in her usual state of health yesterday. At baseline she does ambulate with a cane as she is recovered from back surgery this past September. She gone to the gym as usual, and her daughter had spoken with her in the evening. Shortly thereafter the patient was returning to the kitchen sink when she became dizzy and fell onto her right side. The dizziness sensation was apparently a feeling of falling to the right, not presyncopal, not vertigo. The patient stood up, again became dizzy, wanting to follow the right and let herself back to the floor. She is greater across the floor to a chair. She is afraid to stand due to fear of falling again. She called her daughter, eventually the fire department arrived to evaluate. She is transported to the hospital and her daughters vehicle, requiring assistance in using her walker and getting to the pickup. Evaluation in the ED with head CT showed old frontal cortical infarcts, nothing acute. Plain films of the shoulder and hip were negative. The patient continued to have complaints of dizziness and falling to the right. NIH stroke scale was reported to me as 0 in the ED. However the patient and her daughter both note the patient felt weak on her right side from the onset of her symptoms which has continued to the time of my exam is generally unchanged. Upon arrival on the floor NIH stroke scale was 6. The patient was outside of the window for TPA administration. Patient arrived on the floor in the early hours of 03/28, when seen later that morning she was still feeling somewhat "dizzy" in which she still felt like she wanted to fall to the right, this was worse when she attempted to sit up or stand. Both her and her daughter note that she appears to be weaker on the right since her fall last evening, as noted above. She is also complaining of continued significant pain in the right shoulder. She does have a history of disequilibrium in the past, though her current symptoms are distinctly different and worsened and abruptly began yesterday. 03/29: Strength seems improved in the right upper and lower extremities today. Still with shoulder pain, though it does not seem to be as bad with passive range of motion. CT of the shoulder showed subluxation of the glenohumeral joint and remote posterior labrum avulsion fracture. May have rotator cuff impingement or tear. Abdominal ultrasound with no evidence of aneurysm. No speech or swallowing problems. Case reviewed at bedside with her daughter Annette ([phone]) via telephone. 03/30 No overnight event or new complaints. Mild right-sided weakness. Right shoulder discomfort with movement. Review of Systems: denies headache/fever/chills/nausea/vomiting/chest or abdominal pain/cough/dyspnea/diarrhea. Otherwise see above. Constitutional Vitals: Vital Signs Temp Pulse Resp BP Pulse Ox 98.0 F 54 L 18 149/66 98 03/30/21 07:07 03/30/21 07:07 03/30/21 07:07 03/30/21 07:07 03/30/21 07:07 Period Temp Pulse Resp BP Sys/Diamond Pulse Ox Last 24 Hr 97.4 F-98.4 F 54-63 12-18 116-166/64-84 96-99 Intake and Output 03/29/21 03/30/21 03/30/21 21:59 05:59 13:59 Intake Total 2040 300 Output Total 1075 500 Balance 965 -200 Weight 64.467 kg Intake & Output: Intake & Output 03/29/21 03/30/21 03/30/21 21:59 05:59 13:59 Intake Total 2040 300 Output Total 1075 500 Balance 965 -200 Weight 64.467 kg Intake: IV 1000 Sodium Chloride 0.9% 1,000 ml @ 1000 75 mls/hr IV .[id number] [facility] Rx#: [id number] Oral 1040 300 Output: Void Amount 1075 500 Other: Meal Dinner Percent of Meal Consumed 100% Urine Appearance Clear Clear Urine Color Pale Pale Stool Size Large Stool Color Brown Stool Consistency Normal for Patient # Voids 2 # Bowel Movements 1 Exam: General: Alert, Awake, No acute Distress Eyes/N/T: EOMI, Head/Neck: neck supple, CV: RRR, No murmurs, Pulm: Clear b/l, no wheezing/rhonchi/rales Abd: soft, nontender, +BS x4 Ext: no clubbing/cyanosis/edema Neuro: Alert, right hemiparisis, sensations intact b/l upper/lower Skin: warm/dry OBJ DATA Labs CBC & Chem 7: 03/30/21 05:36 Labs: Abnormal Lab Results 03/29/21 03/27/21 05:16 23:11 Carbon Dioxide 21 L POC BUN 27 H BUN 26 H POC Glucose 109 H Calcium 8.2 L POC WB Ioniz Calcium 1.12 L Meds: Medications Acetaminophen (Acetaminophen 325 Mg Tablet) 650 mg PO Q6HP PRN; Protocol PRN Reason: Per Pain Protocol/Fever > 101 Last Admin: 03/29/21 19:54 Dose: 650 mg Documented by: Aspirin (Aspirin 81 Mg Tab.Chew) 81 mg PO DAILY [facility] Last Admin: 03/29/21 08:24 Dose: 81 mg Documented by: Atorvastatin Calcium (Atorvastatin 40 Mg Tablet) 80 mg PO [facility] Last Admin: 03/29/21 19:54 Dose: 80 mg Documented by: Docusate Sodium (Docusate Sodium 100 Mg Capsule) 100 mg PO BID [facility] Last Admin: 03/29/21 19:54 Dose: 100 mg Documented by: Enoxaparin Sodium (Enoxaparin 40 Mg/0.4 Ml Syringe) 40 mg SQ DAILY [facility] Last Admin: 03/29/21 08:24 Dose: 40 mg Documented by: Famotidine (Famotidine 20 Mg Tablet) 20 mg PO BID [facility] Last Admin: 03/29/21 19:54 Dose: 20 mg Documented by: Lisinopril (Lisinopril 20 Mg Tablet) 20 mg PO QDAY [facility] Ondansetron HCl (Ondansetron 4 Mg/2 Ml Vial) 4 mg IV Q6HP PRN PRN Reason: Nausea And Vomiting Prochlorperazine (Prochlorperazine 10 Mg/2 Ml Vial) 5 mg IV Q4HP PRN PRN Reason: Nausea And Vomiting Senna (Sennosides 1 Tablet) 2 tab PO [facility] Last Admin: 03/29/21 19:54 Dose: 2 tab Documented by: Sodium Chloride (0.9 % Sodium Chloride 10 Ml Syringe) 10 ml IV Q8 [facility] Last Admin: 03/30/21 04:19 Dose: 10 ml Documented by: Verapamil HCl (Verapamil 120 Mg Tab.Xl.24h) 120 mg PO QHS [facility] Last Admin: 03/29/21 19:54 Dose: 120 mg Documented by: A/P Narrative A/P Narrative: A: *CVA w/right hemiparesis(improving): -Findings of old cortical right and left frontal infarcts on CT of head -Does not tolerate MRI without conscious sedation; f/u CT no acute but old b/l frontal infarcts *HTN: Controlled with lisinopril and verapamil *Right shoulder pain s/p fall: -Plain films negative -CT shoulder w/subluxation of humeral head, possible rotator cuff tear versus impingement *Abdominal bruit: -Noted on exam, On exam aorta does not appear dilated to palpation, Ultrasound without evidence of aneurysm Plan: - -Echocardiogram completed, report pending -Continue aspirin and atorvastatin (high intensity) -Resumed lower dose verapamil dose reduced due to possible increased BP effect while on atorvastatin) -Resumed lisinopril today -Continue PT and OT evaluations -Orthopedic consult regards right shoulder -ppx: Enoxaparin Time Spent With Patient Time: Total time spent is greater than 50% in coordination of care (as documented) at patient's floor/unit and/or counseling patient:
[2021-03-30 07:23] LABS: Blood Urea Nitrogen 23 mg/dL (8-23); Calcium 8.8 mg/dL (8.6-10.4); Carbon Dioxide 21 mmol/L (22-30); Chloride 108 mmol/L (96-108); Glomerular Filtration Rate 55; Glucose 89 mg/dL (70-105)
--- NOTE | 2021-03-30 07:28 | EKG ---
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 Measurements Intervals [place] Rate: 69 P: 74 NE: 153 QRS: -33 QRSD: 125 T: 67 QT: 406 QTc: 435 Interpretive Statements Sinus rhythm Probable left atrial enlargement Right bundle branch block Electronically Signed On 03-30-2021 7:27:46 PST by Glenn Allison M.D. /[id number]/[email or web address]/[id number]
[2021-03-30] MEDS: ACETAMINOPHEN 325 MG TABLET PO PRN (07:59)
[2021-03-30] MEDS: ENOXAPARIN 40 MG/0.4 ML SYRINGE SQ SCH (07:59)
[2021-03-30] MEDS: FAMOTIDINE 20 MG TABLET PO SCH ×2 (08:00→20:09)
[2021-03-30] MEDS: LISINOPRIL 20 MG TABLET PO SCH (08:00)
[2021-03-30] MEDS: DOCUSATE SODIUM 100 MG CAPSULE PO SCH ×2 (08:01→20:09)
[2021-03-30] MEDS: ASPIRIN 81 MG TAB.CHEW PO SCH (08:01)
--- NOTE | 2021-03-30 10:07 | Discharge Summary ---
Discharge Provider Provider Patient information: Note initiated : 03/30/21 at 10:05 am Service Date, if different from initiated Date: [] Patient: Stephanie Olivares 76 y/o F admitted on 03/28/21 for Dizziness, fall. Chief Complaint: [] Date of admission: 03/28/21 11:04 Discharge date: 04/01/21 Primary care physician: Gail Welch Consults: 03/28/21 Consult to Physician [CONS] Stat Comment: Consulting Provider: Nisa Brantley Reason For Exam: Physician to Consult 03/29/21 08:46 Consult to Physician [CONS] Routine Comment: right shoulder Consulting Provider: Ovidio Valdez Reason For Exam: Physician to Consult Discharge Meds Discharge Medications Home Medications lisinopril 20 mg tablet 20 mg PO QDAY #90 tab 06/30/20 [Rx Confirmed 03/28/21 Last Taken 03/27/21 06:30] meclizine 25 mg tablet 25 mg PO QDAY PRN #7 tab 03/27/21 [Rx Last Taken Unknown] verapamil 180 mg tablet,extended release 180 mg PO QHS 03/28/21 [History Confirmed 03/28/21 Last Taken 03/26/21 20:30] aspirin 81 mg chewable tablet 81 mg PO DAILY #60 tab 03/30/21 [Rx Last Taken Unknown] atorvastatin 20 mg tablet (Lipitor) 20 mg PO QHS #30 tab 03/30/21 [Rx Last Taken Unknown] COURSE Hospital Course Hospital course: Interval history: 03/28: Ms. Olivares is a 76 year old F with a past history of hypertension, spinal stenosis with peripheral neuropathy who presents to the ED after a fall at home. History is obtained in speaking with the patient as well as her daughter. Patient was in her usual state of health yesterday. At baseline she does ambulate with a cane as she is recovered from back surgery this past September. She gone to the gym as usual, and her daughter had spoken with her in the evening. Shortly thereafter the patient was returning to the kitchen sink when she became dizzy and fell onto her right side. The dizziness sensation was apparently a feeling of falling to the right, not presyncopal, not vertigo. The patient stood up, again became dizzy, wanting to follow the right and let herself back to the floor. She is greater across the floor to a chair. She is afraid to stand due to fear of falling again. She called her daughter, eventually the fire department arrived to evaluate. She is transported to the hospital and her daughters vehicle, requiring assistance in using her walker and getting to the pickup. Evaluation in the ED with head CT showed old frontal cortical infarcts, nothing acute. Plain films of the shoulder and hip were negative. The patient continued to have complaints of dizziness and falling to the right. NIH stroke scale was reported to me as 0 in the ED. However the patient and her daughter both note the patient felt weak on her right side from the onset of her symptoms which has continued to the time of my exam is generally unchanged. Upon arrival on the floor NIH stroke scale was 6. The patient was outside of the window for TPA administration. Patient arrived on the floor in the early hours of 03/28, when seen later that morning she was still feeling somewhat "dizzy" in which she still felt like she wanted to fall to the right, this was worse when she attempted to sit up or stand. Both her and her daughter note that she appears to be weaker on the right since her fall last evening, as noted above. She is also complaining of continued significant pain in the right shoulder. She does have a history of disequilibrium in the past, though her current symptoms are distinctly different and worsened and abruptly began yesterday. 12: Strength seems improved in the right upper and lower extremities today. Still with shoulder pain, though it does not seem to be as bad with passive range of motion. CT of the shoulder showed subluxation of the glenohumeral campbell int and remote posterior labrum avulsion fracture. May have rotator cuff impingement or tear. Abdominal ultrasound with no evidence of aneurysm. No speech or swallowing problems. Case reviewed at bedside with her daughter Annette ([phone]) via telephone. 03/30 No overnight event or new complaints. Mild right-sided weakness. Right shoulder discomfort with movement. 03/31 Patient slept all right patient feels her right-sided weakness is a little bit better. No new complaints other than she has some rib pain on the left breast. 04/01 Discharge to long term facility today. A: *CVA w/right hemiparesis(improving): -Findings of old cortical right and left frontal infarcts on CT of head -Does not tolerate MRI without conscious sedation; f/u CT no acute but old b/l frontal infarcts -echo no thrombus *HTN: Controlled with lisinopril and verapamil *Right shoulder pain s/p fall: -Plain films negative -CT shoulder w/subluxation of humeral head, possible rotator cuff tear versus impingement *Fx of Left 10th rib Plan: -Continue aspirin/atorvastatin -Continue PT and OT evaluations -f/u with Orthopedic outpt Discharge diagnosis: CVA with right hemiparesis hypertension right shoulder pain Time Spent with Patient Time attestation: Total time spent providing and/or coordinating discharge services: Time spent: Greater than 30 minutes EXAM Constitutional Vitals: Temp Pulse Resp BP Pulse Ox 98.0 F 54 L 18 149/66 98 03/30/21 07:07 03/30/21 07:07 03/30/21 07:07 03/30/21 07:07 03/30/21 07:07 Discharge Data Data Completed and Pending Labs on day of discharge: Labs from last 24 hours 03/30/21 05:36 Sodium 140 Potassium 4.2 Chloride 108 Carbon Dioxide 21 L Anion Gap 11.0 BUN 23 Creatinine 1.0 GFR Calculation 55 Glucose 89 Calcium 8.8 Discharge Plan Patient/Caregiver Discharge Instructions Activity: increase activity as tolerated Diet: Cardiac Instructions: Dizziness (ED), Shoulder Pain (ED), Hip Pain (ED) Prescriptions: New meclizine 25 mg tablet 25 mg PO QDAY PRN (Reason: dizziness) Qty: 7 0RF aspirin 81 mg Tablet,Chewable 81 mg PO DAILY Qty: 60 0RF atorvastatin [Lipitor] 20 mg tablet 20 mg PO QHS Qty: 30 0RF Continued lisinopril 20 mg tablet 20 mg PO QDAY Qty: 90 2RF verapamil 180 mg tablet extended release 180 mg PO QHS 0RF Rx Instructions: TAKE 1 TABLET BY MOUTH EVERY NIGHT AT BEDTIME Follow Up Plan Follow up with: Ovidio Valdez MD [Physician] - Berny Singleton PA-C [Physician Video Game Tester] - Gail Welch ARNP [Primary Care Provider] - Patient Disposition: Xfer SNF Prognosis: Fair Rehab Potential: Fair I certify that the patient requires SNF services: Yes Overall status at discharge: patient is progressing back to baseline Discharge Orders: Discharge Order (Routine); Ordered 04/01/21 Ordered By: Michele Agrawal
[2021-03-30] MEDS ORDERED: KETOROLAC 15 MG/ML VIAL IV ONE (12:15)
[2021-03-30] MEDS: METHOCARBAMOL 750 MG TABLET PO PRN (12:22)
--- NOTE | 2021-03-30 19:12 | Orthopedic Consult Note ---
HPI Data of Consult Consult date: 03/30/21 Primary Care Provider: Gail Welch Consult Narrative cc:: CC: Nisa Brantley [facility] PFS All Active Problems (Updated 03/28/21 @ 11:34 by Nisa Brantley MD) Abdominal bruit (Acute) Cerebrovascular accident (Acute) Fall (Acute) Right shoulder pain (Acute) Acute hip pain (Acute) Dizziness (Acute) Rib pain on left side (Acute) Varicose veins of leg with pain (Acute) Varicose veins of left leg with edema (Acute) Lumbar back pain with radiculopathy affecting right lower extremity (Acute) Leg pain, right (Acute) Annual physical exam (Acute) Lymphadenopathy (Acute) Dizziness (Acute) History of left knee replacement (Chronic) History of total hysterectomy (Chronic) History of appendectomy (Chronic) History of colonoscopy (Chronic 04/20/18) Idiopathic progressive polyneuropathy (Chronic) Postmenopausal (Chronic) Hypothyroidism (Chronic) Osteoporosis (Chronic) Disequilibrium (Chronic) Vitamin D deficiency (Chronic) Toothache (Chronic) Nausea (Chronic) Hypertension (Chronic) Raynaud's syndrome (Chronic) Foot pain (Chronic) Plantar fasciitis (Chronic) Back pain (Chronic) Contact dermatitis (Chronic) Other specified injuries of head, initial encounter (Chronic) Hemorrhoids (Chronic) Chest pain (Chronic) Medical History (Updated 03/28/21 @ 11:34 by Nisa Brantley MD) Back pain Contact dermatitis Disequilibrium Foot pain Hemorrhoids Hypertension Hypothyroidism Idiopathic progressive polyneuropathy Leg pain, right Lumbar back pain with radiculopathy affecting right lower extremity Nausea Osteoporosis Other specified injuries of head, initial encounter Plantar fasciitis Postmenopausal Raynaud's syndrome Toothache Vitamin D deficiency Surgical History History of appendectomy History of colonoscopy (04/20/18) Dr Ku repeat 10 years History of left knee replacement History of lumbosacral spine surgery L4-L5, L5-S1 decompression History of total hysterectomy Family History Mother HTN (hypertension) CVA (cerebral vascular accident) Thyroid disorder Father Cancer Sister HTN (hypertension) Social History (Updated 03/28/21 @ 11:26 by Nisa Brantley MD) household members: alone marital status: other: Has 3 children smoking status: Never smoker substance use type: does not use MEDS/ALLERGIES Home Medications and Allergies Home Medications Medication Instructions Recorded Confirmed Type lisinopril 20 mg tablet 20 mg PO QDAY #90 tab 06/30/20 03/28/21 Rx meclizine 25 mg tablet 25 mg PO QDAY PRN #7 tab 03/27/21 Rx verapamil 180 mg tablet,extended 180 mg PO QHS 03/28/21 03/28/21 History release aspirin 81 mg chewable tablet 81 mg PO DAILY #60 tab 03/30/21 Rx atorvastatin 20 mg tablet (Lipitor) 20 mg PO QHS #30 tab 03/30/21 Rx Allergies Allergy/AdvReac Type Severity Reaction Status Date / Time No Known Drug Allergies Allergy Verified 03/27/21 20:14 Physical Examination Narrative Narrative: Narrative: A/P Assessment and plan (1) Right shoulder pain: Status: Acute Narrative A/P Narrative: The orthopedic team was asked to review a CT scan of the right shoulder after the patient had a fall and pain in her shoulder. On review of the CT scan there were some small fragments of bone which more likely represented fractured osteophytes then acute fractures. Overall the CT scan of the right shoulder was consistent with degenerative change in keeping with osteoarthritis. I will be happy to see this patient in follow-up in the clinic in the next available elective appointment where we can discuss nonoperative versus operative treatment options for the patient. In the meantime they can be weightbearing as tolerated the arm. I do not see any acute fractures or dislocations that need to be surgically addressed in this hospital stay. Time Spent With Patient Time: Total time spent is greater than 50% in coordination of care (as documented) at patient's floor/unit and/or counseling patient:
[2021-03-30] MEDS: ATORVASTATIN 40 MG TABLET PO SCH (20:09)
[2021-03-30] MEDS: SENNOSIDES 1 TABLET PO SCH (20:09)
[2021-03-30] MEDS: VERAPAMIL 120 MG TAB.XL.24H PO SCH (20:10)
[2021-03-31] MEDS: 0.9 % SODIUM CHLORIDE 10 ML SYRINGE IV SCH ×3 (05:38→20:06)
[2021-03-31] MEDS: ACETAMINOPHEN 325 MG TABLET PO PRN ×2 (08:10→20:14)
[2021-03-31] MEDS: METHOCARBAMOL 750 MG TABLET PO PRN (08:11)
[2021-03-31] MEDS: DOCUSATE SODIUM 100 MG CAPSULE PO SCH ×2 (08:11→20:14)
[2021-03-31] MEDS: LISINOPRIL 20 MG TABLET PO SCH (08:12)
[2021-03-31] MEDS: ASPIRIN 81 MG TAB.CHEW PO SCH (08:12)
[2021-03-31] MEDS: ENOXAPARIN 40 MG/0.4 ML SYRINGE SQ SCH (08:12)
[2021-03-31] MEDS: FAMOTIDINE 20 MG TABLET PO SCH ×2 (08:12→20:14)
--- NOTE | 2021-03-31 09:35 | XRay Report ---
HISTORY: Fell with pain in the anterior left lower ribs FINDINGS: There is a subtle nondisplaced fracture near the costochondral junction anterolaterally in the left 10th rib. There is an old healed fracture posterior laterally in the left fourth rib. The remainder of the ribs are normal. Left lung is clear except for linear band of scar tissue medially in the left lower lobe. Moderate arthritis is present in the left shoulder. There is also moderate arthritis throughout the thoracic spine. IMPRESSION: Fractured left 10th rib Interpreted and Authenticated by: Wes Allison 03/31/21
--- NOTE | 2021-03-31 10:10 | Internal Med Progress Note ---
SUBJECTIVE Subjective Patient information: Note initiated : 03/31/21 at 10:07 am Service Date, if different from initiated Date: [] Patient: Stephanie Olivares a 76 y/o F admitted on 03/28/21 for Dizziness, fall. Chief Complaint: [] Interval history: 03/28: Ms. Olivares is a 76 year old F with a past history of hypertension, spinal stenosis with peripheral neuropathy who presents to the ED after a fall at home. History is obtained in speaking with the patient as well as her daughter. Patient was in her usual state of health yesterday. At baseline she does ambulate with a cane as she is recovered from back surgery this past September. She gone to the gym as usual, and her daughter had spoken with her in the evening. Shortly thereafter the patient was returning to the kitchen sink when she became dizzy and fell onto her right side. The dizziness sensation was apparently a feeling of falling to the right, not presyncopal, not vertigo. The patient stood up, again became dizzy, wanting to follow the right and let herself back to the floor. She is greater across the floor to a chair. She is afraid to stand due to fear of falling again. She called her daughter, eventually the fire department arrived to evaluate. She is transported to the hospital and her daughters vehicle, requiring assistance in using her walker and getting to the pickup. Evaluation in the ED with head CT showed old frontal cortical infarcts, nothing acute. Plain films of the shoulder and hip were negative. The patient continued to have complaints of dizziness and falling to the right. NIH stroke scale was reported to me as 0 in the ED. However the patient and her daughter both note the patient felt weak on her right side from the onset of her symptoms which has continued to the time of my exam is generally unchanged. Upon arrival on the floor NIH stroke scale was 6. The patient was outside of the window for TPA administration. Patient arrived on the floor in the early hours of 03/28, when seen later that morning she was still feeling somewhat "dizzy" in which she still felt like she wanted to fall to the right, this was worse when she attempted to sit up or stand. Both her and her daughter note that she appears to be weaker on the right since her fall last evening, as noted above. She is also complaining of continued significant pain in the right shoulder. She does have a history of disequilibrium in the past, though her current symptoms are distinctly different and worsened and abruptly began yesterday. 03/29: Strength seems improved in the right upper and lower extremities today. Still with shoulder pain, though it does not seem to be as bad with passive range of motion. CT of the shoulder showed subluxation of the glenohumeral joint and remote posterior labrum avulsion fracture. May have rotator cuff impingement or tear. Abdominal ultrasound with no evidence of aneurysm. No speech or swallowing problems. Case reviewed at bedside with her daughter Annette ([phone]) via telephone. 03/30 No overnight event or new complaints. Mild right-sided weakness. Right shoulder discomfort with movement. 03/31 Patient slept all right patient feels her right-sided weakness is a little bit better. No new complaints other than she has some rib pain on the left breast. Review of Systems: denies headache/fever/chills/nausea/vomiting/chest or abdominal pain/cough/dyspnea/diarrhea. Otherwise see above. Constitutional Vitals: Vital Signs Temp Pulse Resp BP Pulse Ox 97.3 F 51 L 16 137/96 96 03/31/21 07:49 03/31/21 07:49 03/31/21 07:49 03/31/21 07:49 03/31/21 07:49 Period Temp Pulse Resp BP Sys/Diamond Pulse Ox Last 24 Hr 97.3 F-99.7 F 51-62 16-20 102-137/56-96 94-98 Intake and Output 03/30/21 03/31/21 03/31/21 21:59 05:59 13:59 Intake Total 940 300 Output Total 150 275 Balance 790 300 -275 Weight 65.136 kg Intake & Output: Intake & Output 03/30/21 03/31/21 03/31/21 21:59 05:59 13:59 Intake Total 940 300 Output Total 150 275 Balance 790 300 -275 Weight 65.136 kg Intake: Oral 940 300 Output: Void Amount 150 275 Other: Meal Lunch Percent of Meal Consumed 100% Urine Appearance Clear Urine Color Bright Yellow Exam: General: Alert, Awake, No acute Distress Eyes/N/T: EOMI, Head/Neck: neck supple, CV: RRR, No murmurs, Pulm: Clear b/l, no wheezing/rhonchi/rales Abd: soft, nontender, +BS x4 Ext: no clubbing/cyanosis/edema Neuro: Alert, right side weakness mildly improved, moves all extremities Skin: warm/dry OBJ DATA Labs CBC & Chem 7: 03/30/21 05:36 Labs: Abnormal Lab Results 03/30/21 03/29/21 05:36 05:16 Carbon Dioxide 21 L 21 L BUN 26 H Calcium 8.2 L Meds: Medications Acetaminophen (Acetaminophen 325 Mg Tablet) 650 mg PO Q6HP PRN; Protocol PRN Reason: Per Pain Protocol/Fever > 101 Last Admin: 03/31/21 08:10 Dose: 650 mg Documented by: Aspirin (Aspirin 81 Mg Tab.Chew) 81 mg PO DAILY [facility] Last Admin: 03/31/21 08:12 Dose: 81 mg Documented by: Atorvastatin Calcium (Atorvastatin 40 Mg Tablet) 80 mg PO HS [facility] Last Admin: 03/30/21 20:09 Dose: 80 mg Documented by: Docusate Sodium (Docusate Sodium 100 Mg Capsule) 100 mg PO BID [facility] Last Admin: 03/31/21 08:11 Dose: 100 mg Documented by: Enoxaparin Sodium (Enoxaparin 40 Mg/0.4 Ml Syringe) 40 mg SQ DAILY [facility] Last Admin: 03/31/21 08:12 Dose: 40 mg Documented by: Famotidine (Famotidine 20 Mg Tablet) 20 mg PO BID [facility] Last Admin: 03/31/21 08:12 Dose: 20 mg Documented by: Lisinopril (Lisinopril 20 Mg Tablet) 20 mg PO QDAY [facility] Last Admin: 03/31/21 08:12 Dose: 20 mg Documented by: Methocarbamol (Methocarbamol 750 Mg Tablet) 750 mg PO Q6HP PRN PRN Reason: Muscle Spasm Last Admin: 03/31/21 08:11 Dose: 750 mg Documented by: Ondansetron HCl (Ondansetron 4 Mg/2 Ml Vial) 4 mg IV Q6HP PRN PRN Reason: Nausea And Vomiting Prochlorperazine (Prochlorperazine 10 Mg/2 Ml Vial) 5 mg IV Q4HP PRN PRN Reason: Nausea And Vomiting Senna (Sennosides 1 Tablet) 2 tab PO [facility] Last Admin: 03/30/21 20:09 Dose: 2 tab Documented by: Sodium Chloride (0.9 % Sodium Chloride 10 Ml Syringe) 10 ml IV Q8 [facility] Last Admin: 03/31/21 05:38 Dose: 10 ml Documented by: Verapamil HCl (Verapamil 120 Mg Tab.Xl.24h) 120 mg PO QHS [facility] Last Admin: 03/30/21 20:10 Dose: 120 mg Documented by: A/P Narrative A/P Narrative: A: *CVA w/right hemiparesis(improving): -Findings of old cortical right and left frontal infarcts on CT of head -Does not tolerate MRI without conscious sedation; f/u CT no acute but old b/l frontal infarcts -echo no thrombus *HTN: Controlled with lisinopril and verapamil *Right shoulder pain s/p fall: -Plain films negative -CT shoulder w/subluxation of humeral head, possible rotator cuff tear versus impingement *Fx of Left 10th rib Plan: -Continue aspirin/atorvastatin -Resumed verapamil / lisinopril -Continue PT and OT evaluations -f/u with Orthopedic -ppx: Enoxaparin Time Spent With Patient Time: Total time spent is greater than 50% in coordination of care (as documented) at patient's floor/unit and/or counseling patient:
[2021-03-31] MEDS ORDERED: HYDROcodone/APAP 5/325MG TABLET PO PRN (10:11)
[2021-03-31] MEDS: SENNOSIDES 1 TABLET PO SCH (20:13)
[2021-03-31] MEDS: VERAPAMIL 120 MG TAB.XL.24H PO SCH (20:14)
[2021-03-31] MEDS: ATORVASTATIN 40 MG TABLET PO SCH (20:18)
[2021-04-01] MEDS: 0.9 % SODIUM CHLORIDE 10 ML SYRINGE IV SCH (05:37)
[2021-04-01] MEDS: LISINOPRIL 20 MG TABLET PO SCH (08:27)
[2021-04-01] MEDS: ENOXAPARIN 40 MG/0.4 ML SYRINGE SQ SCH (08:27)
[2021-04-01] MEDS: ASPIRIN 81 MG TAB.CHEW PO SCH (08:28)
[2021-04-01] MEDS: DOCUSATE SODIUM 100 MG CAPSULE PO SCH ×2 (08:28→08:30)
[2021-04-01] MEDS: FAMOTIDINE 20 MG TABLET PO SCH (08:28)
[2021-04-01] MEDS ORDERED: FUROSEMIDE 20 MG/2 ML VIAL IV ONE (10:03)
== END 2021-04-01 15:10 | DRG 65 ==
LOC: ED 20:08 → MEDSUR 20:08
PROVIDERS: ADMIT Internal Medicine; ATTEND Internal Medicine

== ENCOUNTER 2023-10-02 04:52 | Inpatient (IN) ==
[2023-10-02] MEDS ORDERED: IOPAMIDOL 100 ML BOTTLE IV ONE (04:53)
[2023-10-02 05:16] LABS: POC INR 1.1 (0.8-1.2); POC Pro Time 13.4 (11.9-14.5)
[2023-10-02 05:54] LABS: Basophils # (Auto) 0.02 K/mcL (0.00-0.30); Basophils % (Auto) 0.3 % (0.0-2.0); Eosinophils # (Auto) 0.41 K/mcL (0.00-0.70); Eosinophils % (Auto) 5.5 % (0.0-7.0); Hematocrit 38.5 % (34.1-44.9); Hemoglobin 12.9 g/dL (11.2-15.7); Lymphocytes # (Auto) 1.54 K/mcL (1.50-4.80); Lymphocytes % (Auto) 20.8 % (15.5-49.0); Mean Cell Volume 99.2 fL (80.0-100.0); Mean Corpuscular HGB Conc 33.5 g/dL (31.0-36.0); Mean Platelet Volume 10.5 fL (8.8-12.5); Monocytes # (Auto) 1.17 K/mcL (0.10-0.90); Monocytes % (Auto) 15.8 % (1.0-12.0); Neutrophils % (Auto) 57.5 % (38.0-78.0); Platelet Count 229 K/mcL (140-440); RBC 3.88 M/mcL (3.59-5.38); Red Cell Distribution Width 12.5 % (11.5-14.5); WBC 7.4 K/mcL (4.5-11.0)
[2023-10-02 06:21] LABS: ALT/SGPT 8 U/L (<40); AST/SGOT 26 U/L (<32); Albumin/Globulin Ratio 1.4 (1.0-2.3); Alkaline Phosphatase 62 U/L (39-117); Bilirubin,Total 0.4 mg/dL (0.1-1.0); Blood Urea Nitrogen 30 mg/dL (8-23); Calcium 9.5 mg/dL (8.6-10.4); Carbon Dioxide 23 mmol/L (22-30); Chloride 104 mmol/L (96-108); Globulin 2.8 gm/dL (2.2-3.7); Glomerular Filtration Rate 43; Glucose 107 mg/dL (70-105); Potassium 4.4 mmol/L (3.3-5.1); Sodium 138 mmol/L (133-145)
[2023-10-02 07:04] LABS: INR 0.9 (0.9-1.1); Prothrombin Time 12.9 sec (11.9-14.5)
[2023-10-02 07:13] LABS: Appearance,Urine Clear (Clear); Bilirubin,Urine Negative (Negative); Color,Urine Yellow; Culture Indicated,Urine Yes; Glucose,Urine (UA) Negative (Negative); Ketones,Urine Negative (Negative); Leukocyte Esterase,Urine Moderate /uL (Negative); Nitrate,Urine Negative (Negative); PH,Urine 5.5 (5.0-9.0); Protein,Urine Negative (Negative); Urine Blood Negative ery/mcL (Negative); Urine RBC 0 /hpf (0-3); Urine Squamous Epithelial Cell 3 /hpf (0-4); Urine WBC 11 /hpf (0-4); Urobilinogen,Urine Normal
[2023-10-02] MEDS: MECLIZINE 25 MG TABLET PO ONE (08:00)
[2023-10-02] MEDS: ACETAMINOPHEN 500 MG TABLET PO ONE (10:00)
[2023-10-02] MEDS: ASPIRIN 81 MG TAB.CHEW CHEWED ONE (10:23)
[2023-10-02] MEDS: ATORVASTATIN 40 MG TABLET PO ONE (10:23)
[2023-10-02] MEDS: diphenhydrAMINE 50 MG/ML VIAL IV ONE (10:24)
[2023-10-02] MEDS: PROCHLORPERAZINE 10 MG/2 ML VIAL IV ONE (10:24)
[2023-10-02] MEDS: LACTATED RINGERS 1,000 ML IV SCH (11:12)
[2023-10-02] MEDS ORDERED: MAGNESIUM HYDROXIDE 30 ML ORAL.SUSP PO PRN (12:37)
[2023-10-02 13:06] LABS: Thyroid Stimulating Hormone 2.66 uIU/mL (0.27-5.01)
[2023-10-02 13:14] LABS: HDL Cholesterol 56 mg/dL (>40); LDL Cholesterol,Calculated 38 mg/dL (<100); Non-HDL Cholesterol 46 mg/dL (<130); Triglycerides 45 mg/dL (<150)
[2023-10-02] MEDS: CLOPIDOGREL 300 MG TABLET PO ONE (13:49)
[2023-10-02] MEDS: 0.9 % SODIUM CHLORIDE 10 ML SYRINGE IV SCH (13:50)
[2023-10-02 14:11] LABS: Estimated Average Glucose(eAG) 126 mg/dL
[2023-10-02] MEDS: ACETAMINOPHEN 325 MG TABLET PO PRN (19:02)
[2023-10-02] MEDS: HEPARIN 5,000 UNIT/ML VIAL SQ SCH (20:11)
[2023-10-03 05:43] LABS: Basophils # (Auto) 0.02 K/mcL (0.00-0.30); Basophils % (Auto) 0.3 % (0.0-2.0); Eosinophils # (Auto) 0.45 K/mcL (0.00-0.70); Eosinophils % (Auto) 7.5 % (0.0-7.0); Hematocrit 36.9 % (34.1-44.9); Hemoglobin 12.3 g/dL (11.2-15.7); Lymphocytes # (Auto) 1.34 K/mcL (1.50-4.80); Lymphocytes % (Auto) 22.3 % (15.5-49.0); Mean Cell Volume 99.5 fL (80.0-100.0); Mean Corpuscular HGB Conc 33.3 g/dL (31.0-36.0); Mean Platelet Volume 10.3 fL (8.8-12.5); Monocytes # (Auto) 0.88 K/mcL (0.10-0.90); Monocytes % (Auto) 14.6 % (1.0-12.0); Neutrophils % (Auto) 55.1 % (38.0-78.0); Platelet Count 209 K/mcL (140-440); RBC 3.71 M/mcL (3.59-5.38); Red Cell Distribution Width 12.5 % (11.5-14.5)
[2023-10-03 06:11] LABS: Blood Urea Nitrogen 21 mg/dL (8-23); Calcium 8.9 mg/dL (8.6-10.4); Carbon Dioxide 23 mmol/L (22-30); Chloride 109 mmol/L (96-108); Glomerular Filtration Rate 54; Glucose 103 mg/dL (70-105); Potassium 4.4 mmol/L (3.3-5.1); Sodium 141 mmol/L (133-145)
[2023-10-03] MEDS ORDERED: GARLIC EXTRACT PO SCH (07:45)
[2023-10-03] MEDS: LORazepam 2 MG/ML VIAL IV ONE (08:15)
[2023-10-03] MEDS: CYANOCOBALAMIN (VITAMIN B-12) 500 MCG TABLET PO SCH (08:57)
[2023-10-03] MEDS: MAGNESIUM OXIDE 400 MG TABLET PO SCH (08:57)
[2023-10-03] MEDS: FISH OIL 1,000 MG CAPSULE PO SCH (08:57)
[2023-10-03] MEDS: ASPIRIN 81 MG TAB.CHEW CHEWED SCH (08:57)
[2023-10-03] MEDS: CALCIUM CARBONATE 500 MG TAB.CHEW CHEWED SCH (08:57)
[2023-10-03] MEDS: ERGOCALCIFEROL (VITAMIN D2) 50,000 UNIT CAPSULE PO SCH (08:57)
[2023-10-03] MEDS: CLOPIDOGREL 75 MG TABLET PO SCH (08:57)
[2023-10-03] MEDS: LIOTHYRONINE 5 MCG TABLET PO SCH (08:59)
[2023-10-03] MEDS: ATORVASTATIN 40 MG TABLET PO SCH (20:16)
[2023-10-03] MEDS ORDERED: PROMETHAZINE 25 MG TABLET PO PRN (21:00)
[2023-10-04 06:30] LABS: Basophils # (Auto) 0.03 K/mcL (0.00-0.30); Basophils % (Auto) 0.5 % (0.0-2.0); Eosinophils # (Auto) 0.55 K/mcL (0.00-0.70); Eosinophils % (Auto) 9.3 % (0.0-7.0); Hematocrit 37.7 % (34.1-44.9); Hemoglobin 12.5 g/dL (11.2-15.7); Lymphocytes # (Auto) 1.28 K/mcL (1.50-4.80); Lymphocytes % (Auto) 21.7 % (15.5-49.0); Mean Cell Volume 99.5 fL (80.0-100.0); Mean Corpuscular HGB Conc 33.2 g/dL (31.0-36.0); Mean Platelet Volume 10.8 fL (8.8-12.5); Monocytes # (Auto) 0.87 K/mcL (0.10-0.90); Monocytes % (Auto) 14.7 % (1.0-12.0); Neutrophils % (Auto) 53.6 % (38.0-78.0); Platelet Count 223 K/mcL (140-440); RBC 3.79 M/mcL (3.59-5.38); Red Cell Distribution Width 12.5 % (11.5-14.5); WBC 5.9 K/mcL (4.5-11.0)
[2023-10-04 06:59] LABS: ALT/SGPT < 5 U/L (<40); AST/SGOT 24 U/L (<32); Albumin 3.6 gm/dL (3.2-5.2); Albumin/Globulin Ratio 1.6 (1.0-2.3); Alkaline Phosphatase 55 U/L (39-117); Bilirubin,Direct < 0.2 mg/dL (0-0.3); Bilirubin,Total 0.4 mg/dL (0.1-1.0); Blood Urea Nitrogen 21 mg/dL (8-23); Calcium 9.2 mg/dL (8.6-10.4); Carbon Dioxide 25 mmol/L (22-30); Chloride 107 mmol/L (96-108); Globulin 2.3 gm/dL (2.2-3.7); Glomerular Filtration Rate 61; Glucose 94 mg/dL (70-105); Lactate Dehydrogenase 168 U/L (135-225); Phosphorous 3.2 mg/dL (2.5-4.5); Potassium 4.6 mmol/L (3.3-5.1); Sodium 141 mmol/L (133-145); Triglycerides 85 mg/dL (<150); Uric Acid 5.2 mg/dL (2.5-8.0)
[2023-10-05] MEDS: SENNOSIDES 1 TABLET PO PRN (20:44)
[2023-10-07] MEDS: ONDANSETRON 4 MG/2 ML VIAL IV PRN (20:32)
== END 2023-10-11 14:05 | DRG 69 ==
LOC: ED 04:52 → ICU 04:52 → MEDSUR 10-04 16:53
PROVIDERS: ADMIT Student in an Organized Health Care Education/Training Program; ATTEND Student in an Organized Health Care Education/Training Program